=== PATIENT | female | born 1965 | race Caucasian/White ===

== ENCOUNTER → 2024-11-25 07:59 | Outpatient (REF) | payer OTHER, SELFPAY | LOC: WDC 07:59 | PROVIDERS: ATTENDING PHYSICIAN Physician Assistant Medical | DX: Z12.31 Encounter for screening mammogram for malignant neoplasm of breast (principal) | CPT/HCPCS: 77063; 77067 ==

== ENCOUNTER 2025-08-01 05:03 | Emergency (ER) | payer OTHER, SELFPAY ==
[2025-08-01 05:05] VITALS: BP 122/81
--- NOTE | 2025-08-01 05:14 | ED.GENMED ---
History of Present Illness
<Twin Greenwood MD - Last Filed: 08/01/25 05:16>
General
Chief Complaint: Musculo-Skeletal Complaint
Time Seen by Provider: 08/01/25 06:04
<Harpreet Maravilla DO - Last Filed: 08/01/25 15:58>
General
Source: patient
History of Present Illness
History of Present Illness:
Note:
CHIEF COMPLAINT(S)
Pain in the right shoulder and chest following an incident involving a horse.
HISTORY OF PRESENT ILLNESS
The patient is a 59-year-old female who reports experiencing pain in her right shoulder and chest after a horse sat down on her while she was trying to move away from the animal. The incident occurred when the patient was on the ground, and the
horses back end came down on her. She denies being trapped under the animal and was able to move afterward. The pain is primarily in the right shoulder and chest area. She describes difficulty lifting her right arm due to pain at the top of her
shoulder, which she states makes it painful to lift her hand. She reports some tenderness in the clavicle region. She also experiences pain when taking deep breaths. No other areas of significant pain or weakness were noted, and movement in the arm
is somewhat limited by pain.
MEDICATIONS
The patient is on a daily antidepressant and a vitamin, though specific names and dosages were not mentioned.
REVIEW OF SYSTEMS
- Musculoskeletal: Right shoulder pain primarily at the top; pain on movement.
- Respiratory: Pain upon deep breathing.
- Neurological: No numbness or tingling in the arms or legs.
PHYSICAL EXAM
General: Alert, no acute distress.
Skin: Warm, dry.
Head: Normocephalic, atraumatic.
Neck: Supple, trachea midline.
Eyes, Ears, Nose, Mouth, and Throat: Oral mucosa moist.
Cardiovascular: Normal peripheral perfusion, no edema. Heart regular without murmur.
Respiratory: Lungs clear on auscultation. Respirations are non-labored.
Gastrointestinal: Abdomen nondistended. Minor tenderness reported in the chest wall and clavicle area on the right
Back: Normal range of motion, normal alignment.
Musculoskeletal: Right shoulder pain and tenderness, difficulty lifting arm. No effusion noted to the right shoulder. Humerus nontender. Limited range of motion of the right shoulder due to pain. No midline thoracic or cervical spine tenderness
Neurological: Alert and oriented to person, place, time, and situation. No focal neurological deficits observed.
Psychiatric: Cooperative, appropriate mood and affect.
PROBLEM LIST
Acute:
- Right shoulder and chest pain following trauma from being sat on by a horse.
PLAN
- Administer Toradol for pain management.
- Perform imaging of the chest to rule out fractures, especially to assess potential rib fractures.
- Obtain IV access for contrast administration during the imaging.
- Monitor and evaluate for any further complications or injuries.
DIFFERENTIAL DIAGNOSIS
The Differential Diagnosis includes, in no particular order and is not limited to:
1. Rib fracture
2. Clavicle fracture
3. Shoulder dislocation or sprain
4. Contusion to chest wall
5. Muscular strain or tear in shoulder
6. Fracture to the humerus
7. Pulmonary contusion
8. Pneumothorax
9. Sternum fracture
10. Rotator cuff injury
CARE-UPDATE
08/01/25 - 07:21
The patient has been diagnosed with a clavicle fracture and a single rib fracture, both to be managed conservatively with a sling and time. An incentive spirometer has been provided to encourage deep breathing and reduce the risk of pneumonia. Pain
management includes Tylenol and ibuprofen, with additional ice packs for swelling reduction. No lung injury or vessel damage is noted at this time, which is favorable given the location of the fractures. Follow-up with orthopedics is advised within
a week for imaging review and further management instructions. Pain levels have improved with medication, although movement elicits discomfort.
Disposition:
SUMMARY OF ENCOUNTER
A 59-year-old female presented to the emergency department following an incident where a horse fell on her, resulting in pain in the right shoulder and chest. Imaging revealed a right clavicle fracture and a non-displaced fracture of the right
anterior second rib. Upon examination, perfusion was good, and the patient reported feeling slightly better upon reassessment. Management included pain management, a sling for immobilization, and advice on the use of an incentive spirometer to
prevent complications.
DISPOSITION
Discharge
ASSESSMENT
Right clavicle fracture and right anterior second rib fracture.
PLAN
The patient will be discharged with instructions to use a sling and ice for swelling and pain management. An incentive spirometer should be used 10 times per hour while awake to encourage deep breathing and prevent respiratory complications.
Follow-up with orthopedics is advised for further care and management of the fractures.
INDEPENDENT REVIEW OF LABS AND INTERPRETATION OF TESTS
My independent interpretation of the imaging studies confirms a right clavicle fracture and a non-displaced fracture of the right anterior second rib.
PATIENT EDUCATION AND COUNSELING
The patient was educated on the use of the sling and was instructed to apply ice to the affected area to reduce swelling. Instructions were also provided on the use of an incentive spirometer to encourage lung expansion and prevent pneumonia.
FOLLOW-UP INSTRUCTIONS
The patient is advised to follow up with orthopedics for imaging review and further management within a week.
MEDICATION RECONCILIATION
Pain management includes [id number] options such as Tylenol and ibuprofen.
MEDICAL DECISION MAKING
-Complexity of Data Reviewed:
Differential Diagnosis includes rib fracture, clavicle fracture, shoulder dislocation or sprain, chest wall contusion, and pulmonary contusion.
-Data:
Category 1
Imaging reviewed indicated fractures. No additional lab tests were ordered.
Category 2
Clinical information was directly gathered from the patient regarding the incident and symptoms.
-Risk:
Prescription medication was considered but ultimately not prescribed due to sufficient [id number] options. Discharge was deemed appropriate given the patients stable condition and the nature of her injuries. Consideration of
Admission/Observation: Escalation of care including admission/observation was considered given the complexity and risk of the patients presenting complaint and injuries. However, the patient is safe for outpatient management with close follow-up.
Reasoning: Work-up reassuring, does not reveal any acute life/organ-threatening processes, patients symptoms well controlled upon reevaluation, reexamination is reassuring, vitals are stable, patient agreeable with discharge, reliable for follow-up.
DIAGNOSIS
Right clavicle fracture - ICD-10 Code S42.011A
Non-displaced fracture of the right anterior second rib - ICD-10 Code S22.41XA
Past History
<Twin Greenwood MD - Last Filed: 08/01/25 05:16>
Past History
ED Past Medical History: None
ED Past Surgical History: None
Social History
Personal:
Living: with family
Employment: Employed
Phy Exam
<Harpreet Maravilla DO - Last Filed: 08/01/25 15:58>
Physical Exam
Physical Exam:
.
Course
<Twin Greenwood MD - Last Filed: 08/01/25 05:16>
Orders/Labs/Results
Orders:
Orders
08/01/25 06:23
CT Chest With Iv Contrast Urgent
Comment: does not need to wait for labs
Reason For Exam: R chest injury, horse fell on chest
08/01/25 06:24
Ketorolac [Toradol] 15 mg IV NOW STA
08/01/25 07:16
Sling Right-Treatment ONCE
08/01/25 07:27
Ketorolac [Toradol] 15 mg IV NOW STA
Vital Signs
Initial and Last Documented VS:
Initial Vital Signs
Temp Pulse Resp BP Pulse Ox
98.6 F 88 24 122/81 91
08/01/25 05:05 08/01/25 05:05 08/01/25 05:05 08/01/25 05:05 08/01/25 05:05
Last Documented Vital Signs
Temp Pulse Resp BP Pulse Ox
98.6 F 79 18 129/73 95
08/01/25 05:05 08/01/25 07:06 08/01/25 07:06 08/01/25 06:00 08/01/25 07:27
<Harpreet Maravilla DO - Last Filed: 08/01/25 15:58>
Orders/Labs/Results
Orders:
Orders
08/01/25 06:23
CT Chest With Iv Contrast Urgent
Comment: does not need to wait for labs
Reason For Exam: R chest injury, horse fell on chest
08/01/25 06:24
Ketorolac [Toradol] 15 mg IV NOW STA
08/01/25 07:16
Sling Right-Treatment ONCE
08/01/25 07:27
Ketorolac [Toradol] 15 mg IV NOW STA
Vital Signs
Initial and Last Documented VS:
Initial Vital Signs
Temp Pulse Resp BP Pulse Ox
98.6 F 88 24 122/81 91
08/01/25 05:05 08/01/25 05:05 08/01/25 05:05 08/01/25 05:05 08/01/25 05:05
Last Documented Vital Signs
Temp Pulse Resp BP Pulse Ox
98.6 F 79 18 129/73 95
08/01/25 05:05 08/01/25 07:06 08/01/25 07:06 08/01/25 06:00 08/01/25 07:27
<Twin Greenwood MD - Last Filed: 08/01/25 05:16>
*Pulse Oximetry
SaO2: 91
Oxygen Mode of Delivery: Room air
<Harpreet Maravilla DO - Last Filed: 08/01/25 15:58>
*Pulse Oximetry
SaO2: 95
Oxygen Mode of Delivery: Room air
Patient hypoxic: no
*Critical Care Note
Total Time (30-74mins, 75-104mins- exclusive of procedures): Not Applicable
Data Reviewed
Prescriptions/Medications Considered But Not Given:
Considered narcotics but patient would like to hold off
ED Attending Note
<Twin Greenwood MD - Last Filed: 08/01/25 05:16>
-
Portions of this chart may have been created with voice recognition software.� Occasional wrong word or��sound alike� substitutions may have occurred due to the inherent limitations of voice recognition software.
Discharge Plan
Departure
Patient Disposition: Home (Routine Discharge)
Date of Disposition: 08/01/25
Time of Disposition: 07:23
Patient with high blood pressure during this ER visit?: No
Discharge Problem:
Clavicle fracture, Fracture of rib
Instructions: Clavicle fracture, Rib Fracture
Prescriptions:
No Action
hydrocodone-acetaminophen 5 MG/500 MG tablet
1 tab PO .Q4-6HPRN PRN (Reason: PAIN) Qty: 20 0RF
Referrals:
Isaias Erickson MD [Active, Orthopedics]
Activity Restrictions/Additional Instructions:
Please see orthopedics in the next 1 week for follow-up and reevaluation. Please rest. Please use incentive spirometer 10 times per hour while awake. Return immediately for numbness, tingling, worsening symptoms, shortness of breath, fevers or
any other concerns.
Interventions
Interventions:
*Risk Screen - Suicide Last Done: 08/01/25 05:05
*General Assessment Last Done: 08/01/25 05:05
*Neglect/Abuse Screening Last Done: 08/01/25 05:05
*ED- Fall Risk Assessment Last Done: 08/01/25 05:21
*ED COVID-19 Vaccine History Last Done: 08/01/25 05:21
*ED Influenza Vaccine History Last Done: 08/01/25 05:21
*Nursing Disposition Last Done: 08/01/25 08:21
ED-Musculoskeletal Assessment Last Done: 08/01/25 05:21
Discharge Date and Time
Discharge Date/Time: 08/01/25 08:21
Print Language: DANISH
[2025-08-01 05:20] VITALS: BP 129/82; BMI 28.0
[2025-08-01 06:00] VITALS: BP 129/73
[2025-08-01] MEDS: TORADOL 15 MG IV ×2 (06:32→07:34)
== END 2025-08-01 08:21 | disposition home or self-care (01) ==
LOC: EMR 05:03
PROVIDERS: EMERGENCY PHYSICIAN Emergency Medicine; FAMILY PHYSICIAN Family Medicine
DX: S42.011A Anterior displaced fracture of sternal end of right clavicle, initial encounter for closed fracture (principal); S22.31XA Fracture of one rib, right side, initial encounter for closed fracture; W55.12XA Struck by horse, initial encounter
CPT/HCPCS: 99284; 71260; Q9967

== ENCOUNTER 2025-08-13 06:25 | Day surgery (SDC) | payer OTHER, SELFPAY ==
[2025-08-07 13:38] VITALS: BMI 27.4
[2025-08-07 14:11] LABS: Blood Urea Nitrogen 10 mg/dl (7-17); Calcium 9.0 mg/dl (8.4-10.2); Carbon Dioxide 33 mmol/L (22-30); Chloride 102 mmol/L (98-107); Estimated Creatinine Clearance 98 ml/min; Glucose 82 mg/dl (70-99); Potassium 4.1 mmol/L (3.5-5.1); Sodium 139 mmol/L (135-145); eGFR > 60.00
[2025-08-13] VITALS (9 sets, daily range): BP systolic 102–138; BP diastolic 64–87; BMI 27.4
[2025-08-13] MEDS: TYLENOL 1000 MG PO (09:47)
[2025-08-13] MEDS: NORMOSOL-R/PLASMALYTE-A 1000 IV (09:47)
--- NOTE | 2025-08-13 13:57 | W.IMMPOSTOP ---
Surgical Immed Post Op Note
-
Primary Surgeon: Isaias Erickson MD
Assisting Surgeon:
Pre-op Diagnosis: right clavicle fracture
Post-op Diagnosis: right clavicle fracture
Procedure Performed: open reduction internal fixation right clavicle
Anesthesia Type: general
Specimen / Cultures: none
Estimated Blood Loss: 20mL
Complications: none apparent
Implants: Hi 3.5mm 5-hole lateral clavicle plate; 2.7mm lag screws x3
Operative Findings: long oblique fracture
Operative dictation #: [id number]
[2025-08-13] MEDS: TYLENOL 650 MG PO (15:49)
== END 2025-08-13 16:08 | disposition home or self-care (01) ==
LOC: SDS 06:25
PROVIDERS: ATTENDING PHYSICIAN Student in an Organized Health Care Education/Training Program; FAMILY PHYSICIAN Physician Assistant Medical
DX: S42.021A Displaced fracture of shaft of right clavicle, initial encounter for closed fracture (principal); W18.30XA Fall on same level, unspecified, initial encounter
CPT/HCPCS: 23515; C1713; 73000; 76000; 80048